=== PATIENT | female | born 1945 | race Caucasian/White ===

== ENCOUNTER 2016-07-04 17:04 | Inpatient (IN) | payer OTHER ==
[2016-07-04] MEDS ORDERED: AMIDATE ONE (17:06)
[2016-07-04] MEDS ORDERED: CALCIUM GLUCONATE 2 GM in NS 100 ML IV ONE (17:09)
[2016-07-04] MEDS ORDERED: HUMULIN R ONE (17:17)
[2016-07-04 17:38] LABS: MANUAL DIFF NEEDED? NO
[2016-07-04 17:42] LABS: BASO% 0.1 % (0.0-0.8); EOS# 0.18 X1000 (0.0-0.7); EOS% 1.3 % (0.0-10.0); HEMATOCRIT 31.4 % (37.0-47.0); IMM GRAN# 0.04 X1000 (0.0-0.04); IMM GRAN% 0.3 % (0.0-0.5); LYMPH# 1.08 X1000 (1.2-3.4); MCH 32.8 PG (27-31); MCHC 31.8 g/dL (33-37); MONO# 0.83 X1000 (0.11-0.59); MONO% 6.1 % (1.7-9.3); MPV 12.4 FL (7.4-10.4); NEUT% 84.2 % (42.2-75.2); PLT 122 X1000 (130-400); RBC 3.05 XMIL (4.2-5.4)
[2016-07-04 17:52] LABS: INR 1.01; PROTIME 10.7 Seconds (9.2-11.7); PTT 25.1 Seconds (22.0-36.0)
--- NOTE | 2016-07-04 18:00 | PROVIDER DOCUMENTATION ---
HPI-General Adult - General Chief Complaint: Near Syncope Stated Complaint: VTach runs,Has dialysis tubing in place Time Seen by Provider: 07/04/16 17:44 Allergies/Adverse Reactions: Patient Allergies Allergy/AdvReac Type Severity Reaction Status Date / Time sulfamethoxazole Allergy Severe shut Verified 07/04/16 17:54 [From Bactrim] kidneys down trimethoprim [From Bactrim] Allergy Severe shut Verified 07/04/16 17:54 kidneys down codeine Allergy hyper Verified 07/04/16 17:54 Home Medications: Home Medication List Medication Instructions Recorded Confirmed Last Taken Type Amlodipine Besylate 10 mg PO DAILY 12/30/12 07/04/16 07/04/16 08:00 History Gabapentin [Neurontin] 300 mg PO TID 12/30/12 07/04/16 07/04/16 08:00 History Insulin Aspart [Novolog] 15 unit SQ TID 12/30/12 07/04/16 07/04/16 08:00 History Levothyroxine [Synthroid] 75 microgm PO DAILY 12/30/12 07/04/16 07/04/16 08:00 History Losartan Potassium 100 mg PO DAILY 03/15/15 07/04/16 07/04/16 08:00 History Melatonin 5 mg PO QHS PRN 03/18/16 07/04/16 2 Months Ago History Hydralazine [Apresoline] 25 mg PO TID #90 tablet 03/21/16 07/04/16 07/04/16 08: 00 Rx Calcium Acetate 667 mg PO TID 07/04/16 07/04/16 07/04/16 08:00 History - History of Present Illness -Gen Adult Nature of Presenting Problems: A 71 y/o F who was sent from HD with multitute of complains prior to HD felt dizzy nausea elevated HR with SOB, on monitor was tachycardia and questionable VT on monitor at presentation was SOB, did not get dialysis today, On monitor showed tachycardia with partial block not consistant with VT, as pt is ESRD and missed dialysis also showed prominant T waves treated for hyperkalemia with the medications mentioned in nursing protocol, potassium was checked Istat which seems to be not consistant and labs reported a higher number of 5.5, pt converted back to NSR in the process clinically improved and was stable Review of Systems - Adult - REVIEW OF SYSTEMS - ADULT Constitutional: reports: no symptoms reported Eyes: reports: no symptoms reported Ears, Nose, Mouth & Throat: reports: no symptoms reported Cardiovascular: reports: see HPI Respiratory: reports: no symptoms reported Gastrointestinal: reports: no symptoms reported Genitourinary: reports: no symptoms reported Musculoskeletal: reports: no symptoms reported Integumentary: reports: no symptoms reported Neurological: reports: no symptoms reported Psychiatric: reports: no symptoms reported Endocrine: reports: no symptoms reported Hematologic/Lymphatic: reports: no symptoms reported Allergic/Immunologic: reports: no symptoms reported All Other Systems: Reviewed and Negative Past History - Adult - PAST MEDICAL HISTORY-ADULT Review of Records: reports: Old Records Reviewed, Nursing Assessment Review, Medications Reviewed, Social history reviewed & non-contributory. Major Childhood Illnesses: reports: denies history Cardiovascular: reports: CHF, HTN Respiratory: reports: denies history Gastrointestinal: reports: denies history Obstetrical/Gynecological: reports: denies history Genitourinary: reports: dialysis (renal failure, dialysis 3 x weekly for one year), ESRD Musculoskeletal: reports: denies history Neurological: reports: denies history Endocrine/Immune: reports: Diabetes, thyroid disorder Other Conditions: reports: denies history - PRIOR SURGERIES/PROCEDURES Surgical/Procedure History: reports: cholecystectomy, hysterectomy, other (left BKA) - IMMUNIZATION STATUS Childhood Immunizations: UTD Flu Vaccine: UTD - FAMILY HISTORY Family History: reviewed, not pertinent Physical Exam-General - PHYSICAL EXAM-ADULT Initial Vital Signs Reviewed: Yes - CONSTITUTIONAL General Appearance: appears well, alert, mild distress - EYES Eyes: PERRL/EOMI, pink conjunctivae, fundi clear, no AV nicking - HEAD, EARS, NOSE, MOUTH & THROAT HENMT: normocephalic/atraumatic, moist mucous membranes - NECK Neck: non-tender, full range of motion - RESPIRATORY Respiratory: chest non-tender, lungs clear, normal breath sounds, no pleuratic chest pain, no respiratory distress, no accessory muscle use - CARDIOVASCULAR Cardiovascular: normal peripheral pulses, no edema, no gallop, no JVD, tachycardia - GASTROINTESTINAL (ABDOMEN) Abdominal Exam: normal bowel sounds, non tender, soft, no organomegaly, no pulsatile mass - MUSCULOSKELETAL Extremity: normal range of motion Progress - PLAN OF CARE/RESULTS Progress/Plan/Lab Results: Laboratory Tests 07/04/16 07/04/16 07/04/16 17:10 17:10 17:10 WBC RBC Hgb Hct MCV MCH MCHC RDW Std Deviation Plt Count MPV Immature Gran % (Auto) Neut % (Auto) Lymph % (Auto) [place] % (Auto) Eos % (Auto) Baso % (Auto) Immature Gran # (Auto) Neut # (Auto) Lymph # (Auto) [place] # (Auto) Eos # (Auto) Baso # (Auto) PT INR PTT (Actin FS) D-Dimer 0.48 Sodium 132 L Potassium 5.5 H Chloride 89 L Carbon Dioxide 24 L Anion Gap 19 BUN 66 H Creatinine 7.6 H Estimated GFR/1.73 m2 5 BUN/Creatinine Ratio 9 Glucose 197 H Calculated Osmolality 289 Calcium 8.4 L Magnesium 2.1 Total Bilirubin 0.36 AST 16 ALT 24 Alkaline Phosphatase 79 Creatine Kinase 114 Troponin T 0.049 Phx-G-Zwldryhikjl Pept Total Protein 6.6 Albumin 3.6 Globulin 3.0 Albumin/Globulin Ratio 1.2 07/04/16 07/04/16 07/04/16 17:10 17:10 17:10 WBC 13.58 H RBC 3.05 L Hgb 10.0 L Hct 31.4 L MCV 103.0 H MCH 32.8 H MCHC 31.8 L RDW Std Deviation 15.4 H Plt Count 122 L MPV 12.4 H Immature Gran % (Auto) 0.3 Neut % (Auto) 84.2 H Lymph % (Auto) 8.0 L [place] % (Auto) 6.1 Eos % (Auto) 1.3 Baso % (Auto) 0.1 Immature Gran # (Auto) 0.04 Neut # (Auto) 11.43 H Lymph # (Auto) 1.08 L [place] # (Auto) 0.83 H Eos # (Auto) 0.18 Baso # (Auto) 0.02 PT 10.7 INR 1.01 PTT (Actin FS) 25.1 D-Dimer Sodium Potassium Chloride Carbon Dioxide Anion Gap BUN Creatinine Estimated GFR/1.73 m2 BUN/Creatinine Ratio Glucose Calculated Osmolality Calcium Magnesium Total Bilirubin AST ALT Alkaline Phosphatase Creatine Kinase Troponin T Pej-A-Gzmczaydwwe Pept 78918 H Total Protein Albumin Globulin Albumin/Globulin Ratio Orders Category Date Time Status CHEST-PORTABLE [RAD] Stat Exams 07/04/16 17:22 Taken BMP [BASIC METABOLIC PANEL] [CHEM] Stat Lab 02/20/17 18:25 Received CBC WITH ELECTRONIC DIFF [HEME] Stat Lab 07/04/16 17:10 Completed CK PROFILE [SP CHEM] Stat Lab 07/04/16 17:10 Completed COMPREHENSIVE METABOLIC PANEL [CHEM] Stat Lab 07/04/16 17:10 Completed D-DIMER [CHEM] Stat Lab 07/04/16 17:10 Completed MAGNESIUM [CHEM] Stat Lab 07/04/16 17:10 Completed PRO B-NATRIURETIC PEPTIDE Stat Lab 07/04/16 17:10 Completed PROTIME WITH INR [COAG] Stat Lab 07/04/16 17:10 Completed PTT [COAG] Stat Lab 07/04/16 17:10 Completed TROPONIN T Stat Lab 07/04/16 17:10 Completed Calcium Chloride Syringe Med 07/04/16 18:12 Discontinued 1 gm IV NOW ONE Calcium Gluconate 2 gm Med 07/04/16 17:09 Discontinued 0.9% Sodium Chloride Inj [Ns] 100 ml IV NOW Dextrose 50% Syringe [D50w Syringe] Med 07/04/16 18:12 Discontinued 50 ml IV NOW ONE Etomidate [Amidate] Med 07/04/16 17:06 Discontinued 40 mg .ROUTE .STK-MED ONE Insulin Human Regular [Humulin R] Med 07/04/16 18:12 Discontinued 10 unit IV NOW ONE Insulin Human Regular [Humulin R] Med 07/04/16 17:17 Discontinued 15 unit .ROUTE .STK-MED ONE EKG [EKG] Stat Ther 07/04/16 17:22 Ordered Vital Signs Temp Pulse Resp BP Pulse Ox 07/04/16 17:45 88 19 119/68 100 07/04/16 17:21 94 H 18 91/46 100 07/04/16 17:06 158 H 15 74/46 89 L 07/04/16 17:04 97.7 F 148 H 18 74/46 90 L sulfamethoxazole [From Bactrim] Allergy (Severe, Verified 07/04/16 17:54) shut kidneys down trimethoprim [From Bactrim] Allergy (Severe, Verified 07/04/16 17:54) shut kidneys down codeine Allergy (Verified 07/04/16 17:54) hyper Amlodipine Besylate 10 mg PO DAILY 12/30/12 Gabapentin [Neurontin] 300 mg PO TID 12/30/12 Insulin Aspart [Novolog] 15 unit SQ TID 12/30/12 Levothyroxine [Synthroid] 75 microgm PO DAILY 12/30/12 Losartan Potassium 100 mg PO DAILY 03/15/15 Melatonin 5 mg PO QHS PRN 03/18/16 Hydralazine [Apresoline] 25 mg PO TID #90 tablet 03/21/16 Calcium Acetate 667 mg PO TID 07/04/16 Laboratory 07/04/16 07/04/16 07/04/16 17:10 17:10 17:10 WBC 13.58 H RBC 3.05 L Hgb 10.0 L Hct 31.4 L MCV 103.0 H MCH 32.8 H MCHC 31.8 L RDW Std Deviation 15.4 H Plt Count 122 L MPV 12.4 H Immature Gran % (Auto) 0.3 Neut % (Auto) 84.2 H Lymph % (Auto) 8.0 L [place] % (Auto) 6.1 Eos % (Auto) 1.3 Baso % (Auto) 0.1 Immature Gran # (Auto) 0.04 Neut # (Auto) 11.43 H Lymph # (Auto) 1.08 L [place] # (Auto) 0.83 H Eos # (Auto) 0.18 Baso # (Auto) 0.02 PT 10.7 INR 1.01 PTT (Actin FS) 25.1 D-Dimer Sodium Potassium Chloride Carbon Dioxide Anion Gap BUN Creatinine Estimated GFR/1.73 m2 BUN/Creatinine Ratio Glucose Calculated Osmolality Calcium Magnesium Total Bilirubin AST ALT Alkaline Phosphatase Creatine Kinase Troponin T Umx-N-Dgqiwfqxhqn Pept 36522 H Total Protein Albumin Globulin Albumin/Globulin Ratio 07/04/16 07/04/16 07/04/16 17:10 17:10 17:10 WBC RBC Hgb Hct MCV MCH MCHC RDW Std Deviation Plt Count MPV Immature Gran % (Auto) Neut % (Auto) Lymph % (Auto) [place] % (Auto) Eos % (Auto) Baso % (Auto) Immature Gran # (Auto) Neut # (Auto) Lymph # (Auto) [place] # (Auto) Eos # (Auto) Baso # (Auto) PT INR PTT (Actin FS) D-Dimer 0.48 Sodium 132 L Potassium 5.5 H Chloride 89 L Carbon Dioxide 24 L Anion Gap 19 BUN 66 H Creatinine 7.6 H Estimated GFR/1.73 m2 5 BUN/Creatinine Ratio 9 Glucose 197 H Calculated Osmolality 289 Calcium 8.4 L Magnesium 2.1 Total Bilirubin 0.36 AST 16 ALT 24 Alkaline Phosphatase 79 Creatine Kinase 114 Troponin T 0.049 Ymh-U-Ertadyaogtt Pept Total Protein 6.6 Albumin 3.6 Globulin 3.0 Albumin/Globulin Ratio 1.2 - EKG 1 Time of EKG reading by physician:: 16:48 Comments: tachycardia possible partial bundle block 2 Time of EKG reading by physician:: 18:49 EKG Interpretation (*Must complete 3 of following elements*): Normal Prior EKG Comparison: unchanged from prior Comments: NSR - XRAY 1 XRAY Study: Chest Impression: See EMR Report - CONSULTS/PCP/HOSPITALIST Notification #1 *Consult/PCP/Hospitalist*: hospitalist Time Discussed: 18:53 Consult Disposition: Admit Departure - Departure Time of Disposition Order: 18:50 DIAGNOSIS: Pre-syncope, Tachycardia with heart rate 121-140 beats per minute, ESRD (end stage renal disease) on dialysis, Hyperkalemia Disposition: ADMITTED INPATIENT 09 Certified Medical Emergency: Emergent Condition: Fair - Critical Care Note Comments: pt was initially treated for presumed hyperkalemia due to ESRD and presentation , labs values seem inconsistant with presentation, discussed with hospitalist and will admit for further evalaution and cardiology workup
[2016-07-04 18:02] LABS: ALBUMIN 3.6 g/dL (3.5-5.0); CALCIUM 8.4 mg/dL (8.8-10.2); MAGNESIUM 2.1 mg/dL (1.5-2.7); POTASSIUM 5.5 mmol/L (3.5-5.1); TOTAL BILIRUBIN 0.36 mg/dL (0.20-1.00); TOTAL PROTEIN 6.6 g/dL (6.3-8.3)
[2016-07-04] MEDS ORDERED: HUMULIN R IV ONE (18:12)
[2016-07-04] MEDS ORDERED: D50W SYRINGE IV ONE (18:12)
[2016-07-04] MEDS ORDERED: CALCIUM CHLORIDE SYRINGE IV ONE (18:12)
[2016-07-04 19:12] LABS: RETIC% 1.88 % (0.8-2.1); RETIC-HE 37.1 PG (28.2-36.6)
[2016-07-04 19:18] LABS: CALCIUM 9.3 mg/dL (8.8-10.2); POTASSIUM 4.7 mmol/L (3.5-5.1)
[2016-07-04 19:25] LABS: IRON SATURATION 30 %; TIBC 181 ug/dL; TOTAL IRON 55 ug/dL (49-151); UNBOUND IRON 126 ug/dL (112-346)
[2016-07-04 19:37] LABS: FREE T4 1.12 ng/dL (0.93-1.70)
[2016-07-04] MEDS ORDERED: MELATONIN PO PRN (21:19)
[2016-07-04] MEDS ORDERED: NS 250 ML IV ONE (22:57)
[2016-07-04] MEDS ORDERED: CORDARONE 360 MG/D5W 200 ML IV ONE (23:05)
[2016-07-04] MEDS ORDERED: CORDARONE 150 MG/D5W 100 ML IV ONE (23:05)
[2016-07-04] MEDS ORDERED: CORDARONE ONE (23:10)
[2016-07-04] MEDS ORDERED: LANOXIN IV ONE (23:13)
[2016-07-04] MEDS ORDERED: CORDARONE IV ONE (23:30)
[2016-07-05] MEDS: NEO-SYNEPHRINE 50 MG in NS 250 ML IV SCH ×2 (00:20→04:21)
[2016-07-05] MEDS: HEPARIN SUBQ SCH ×3 (01:05→21:49)
[2016-07-05] MEDS: HUMALOG SUBQ SCH ×8 (01:30→21:57)
[2016-07-05] MEDS ORDERED: CALCIUM CHLORIDE SYRINGE ONE (03:19)
[2016-07-05] MEDS ORDERED: D50W SYRINGE ONE (03:19)
[2016-07-05] MEDS ORDERED: SODIUM BICARBONATE 8.4% ONE (03:19)
[2016-07-05] MEDS ORDERED: CORDARONE 540 MG in D5W 289.2 ML IV ONE (05:00)
[2016-07-05 05:40] LABS: HEMOGLOBIN 9.9 g/dL (12.0-16.0); MCH 33.2 PG (27-31); MCHC 31.9 g/dL (33-37); MPV 11.9 FL (7.4-10.4); RBC 2.98 XMIL (4.2-5.4)
[2016-07-05 05:50] LABS: AGAP 22; ALBUMIN 3.5 g/dL (3.5-5.0); BUN 75 mg/dL (8-22); CALCIUM 8.7 mg/dL (8.8-10.2); CHLORIDE 91 mmol/L (98-107); COSMO 294; HDL 38 mg/dL (45-65); LDL 18 mg/dL; POTASSIUM 5.5 mmol/L (3.5-5.1); SODIUM 134 mmol/L (136-145); TCO2 21 mmol/L (25-35); TRIGLYCERIDES 50 mg/dL (35-135); VLDL 10 mg/dL
[2016-07-05] MEDS ORDERED: HEPARIN IV PRN (06:45)
[2016-07-05] MEDS ORDERED: TIGHT: 0.2 ML/HR MISC PRN (06:45)
[2016-07-05] MEDS ORDERED: NS 2,000 ML MISC PRN (06:45)
--- NOTE | 2016-07-05 07:30 | EKG Report ---
Test Performed on : 07/05/2016 06:06:27 AM Test Reason : tachy Blood Pressure : / mmHG Vent. Rate : 093 BPM Atrial Rate : 038 BPM P-R Int : 000 ms QRS Dur : 132 ms QT Int : 408 ms P-R-T Axes : 000 -40 119 degrees QTc Int : 507 ms Atrial fibrillation. Left axis deviation Nonspecific intraventricular block Inferior infarct , age undetermined T wave abnormality, consider lateral ischemia Abnormal ECG When compared with ECG of 04-JUL-2016 17:47, (Unconfirmed) Atrial fibrillation. has replaced Sinus rhythm. Questionable change in QRS duration Borderline criteria for Anterior infarct are no longer present Inferior infarct is now present Confirmed by Campos Hatfield MD ([id number]) on 07/06/2016 9:17:30 PM
[2016-07-05] MEDS ORDERED: HEPARIN ONE (08:23)
[2016-07-05] MEDS ORDERED: NS 2,000 ML ONE (08:23)
--- NOTE | 2016-07-05 08:41 | Diag Imaging Result Document ---
PROCEDURE NAME: CHEST-PORTABLE - 07/04/2016 SINGLE FRONTAL RADIOGRAPH OF THE CHEST: COMPARISON: 04/11/2016. FINDINGS: Central vascular markings are increased suggesting pulmonary venous congestion. No definite airspace consolidation is identified. There is no definite pleural fluid collection. There is cardiomegaly. IMPRESSION: Cardiomegaly and suggestion of pulmonary venous congestion.
[2016-07-05] MEDS ORDERED: NORVASC PO SCH (09:00)
[2016-07-05] MEDS ORDERED: COZAAR PO SCH (09:00)
[2016-07-05] MEDS ORDERED: APRESOLINE PO SCH (09:00)
[2016-07-05] MEDS ORDERED: LANOXIN IV SCH (09:00)
--- NOTE | 2016-07-05 09:39 | HISTORY AND PHYSICAL ---
HISTORY OF PRESENT ILLNESS: This is a 71-year-old. She gets dialysis for end-stage renal disease on Mondays, Wednesdays, and Fridays. This is Monday. She went for dialysis. They actually put the needles and started dialysis. She got nauseated and they noticed she had a tachycardia with a wide complex. It seemed to be regular. PAST MEDICAL HISTORY: 1. Diabetes mellitus type 2. 2. Hypertension. 3. End-stage renal disease, on hemodialysis 3 times a week, Mondays, Wednesdays, and Fridays. Followed by Dr. Reed. 4. Peripheral neuropathy. 5. Hypothyroidism. 6. Anemia. 7. Recent history of problems with ventricular ectopy, trigeminy, bradycardia on the last admission. PAST SURGICAL HISTORY: 1. AV graft replacement in left arm for hemodialysis. 2. Left ekdun-lmn-sbch amputation for peripheral vascular disease. 3. Hysterectomy. 4. Cholecystectomy. 5. Recent left heart catheterization at [facility]. SOCIAL HISTORY: Patient denies past or present alcohol, tobacco, or illicit drugs. FAMILY HISTORY: Patient's mother had history of stroke, congestive heart failure. Patient's father has a history of heart disease, two heart attacks, and secondary to myocardial infarction. She has some sisters with a history of breast cancer, a brother with a history of esophageal cancer. ALLERGIES: Patient is allergic to sulfa, Bactrim, codeine. Reports that she has skin inflammation noted from the use of latex and Band-Aids. MEDICATIONS: Current list of medications is forthcoming. It looks like she is on amiodarone, calcium carbonate, Neurontin, NovoLog, labetalol, Synthroid, losartan, melatonin. HOSPITALIZATIONS: Last admission, 03/19/2016. I think at that time, it was for a syncopal episode. She has symptomatic bradycardia. She has seen Dr. Feldman before. Echocardiogram done on 03/19/2016, left ventricle normal size without hypertrophy. Ejection fraction 60-65%. Left and right atrium mildly dilated. No pericardial effusion. No valvular disease. Peak pulmonary pressures 40-45 mmHg. Last admission in March, she was found to have junctional bradycardia which was symptomatic secondary to high dose beta [place] therapy which improved with stopping the beta blockers. She had ectopic ventricular contractions. On presentation today, EKG, they read marked sinus bradycardia but she has a wide complex rhythm with right bundle branch pattern, a rate of 150, regular. PHYSICAL EXAMINATION: GENERAL: Well developed, well nourished, awake, alert, pleasant. VITAL SIGNS: Temperature 97.7 degrees, pulse 88, respirations 24, and blood pressure 131/50. HEENT: Her pupils are equal. CVP appears less than 6 cm. No distended neck veins. LUNGS: Clear anterolateral. CARDIOVASCULAR: Examination appears to be in sinus rhythm but regular rhythm and rate. Carotid and radial, femoral pulses 2+ and symmetrical. ABDOMEN: Soft. No hepatojugular reflux. EXTREMITIES: No clubbing, cyanosis, or edema. She has a left ornee-voj-rfrd amputation. LABORATORY DATA: White count 13,580, hematocrit was 31, platelet count 122,000. Sodium 132, potassium 5.5, chloride 89, bicarb 24, BUN 66, creatinine 7.6, magnesium 2.1, calcium 8.4. Liver functions unremarkable. ProBNP 23,307. Prothrombin time 10.7, PTT 25. ASSESSMENT AND PLAN: 1. Palpitations, tachycardia, wide complex with a right bundle-branch. It does not appear to be ventricular tachycardia. She has had a history of sinus bradycardia. She has had this trouble before. They had entertained the idea of maybe needing a pacemaker. We will put her on a monitor and follow her. Plan I think dialysis in the morning per Dr. Reed. Note, electrolytes look reasonable. Her potassium is 5.5, magnesium 2.1. I do not see impressive acidosis. 2. End-stage renal disease. Volume level looks pretty good. Electrolytes look good. Acid base looks pretty good as well. Dialysis in the morning. She usually gets it Mondays, Wednesdays, and Fridays. 3. Diabetes mellitus type 2. Blood sugars will pattern and put her on a sliding scale. 4. She has had a recent echocardiogram. Good left ventricular function. Upon evaluation last time, her heart rate was 32 to 35 per minute. I think they stopped her beta blockers and this seemed to help. Electrocardiogram showed a junctional bradycardia with a rate of 35. She showed improvement. I do not see evidence of cardiac ischemia. She appears to be pretty hemodynamically stable with this rhythm. She presented with a rate of 150, got into the 160s, stated irregular, right bundle branch pattern, and then went back to normal sinus rhythm with a narrow complex. She has poor R-wave progression in the anterior leads but I think that is old. She has no definitive ST-segment elevation or depression.
--- NOTE | 2016-07-05 10:35 | CONSULTATION ---
DATE OF CONSULTATION: 07/05/2016 INDICATION: Arrhythmia. HISTORY OF PRESENT ILLNESS: Ms. Calhoun is a 71-year-old, white female with a history of ventricular tachycardia, coronary artery disease, and end-stage renal disease. She presented yesterday from dialysis with apparent complaints of arrhythmia that was witnessed. She was also sent over for syncope. However, per the patient, she had no episodes of syncope. She had some trouble with headache as well as some lightheadedness but again no syncope. She denies any chest pain. She has had issues with shortness of breath for the last several months that does not seem to have worsened recently. She has no orthopnea. She does sleep with oxygen at night at times. She reports that sometimes she will fall asleep without it and that does not seem to affect her breathing overnight. Again, she has had no chest pain and no exertional chest pain. However, her exertional ability is limited secondary to her comorbid conditions as well as her left-sided BKA. She did have an admission in January at which time she had a ventricular tachycardia, was sent over to [facility] where she had a cardiac catheterization. I believe she was started on amiodarone at that time. She then was discharged and in followups had episodes of bradycardia resulting in rehospitalization in March of 2016. At that time, she was discontinued off of labetalol. Somewhere during the course of the interim time, she has been decreased on her amiodarone I believe to 200 mg a day. Presently, during my examination, she is having frequent runs of what appear to be a ventricular tachycardia with rates up into the 140s which she is tolerating asymptomatically. Currently, she is on dialysis and seems to be tolerating dialysis without any real symptoms. PAST MEDICAL HISTORY: 1. She has a history of coronary artery disease. Last cardiac catheterization was performed in January of 2016. At that time, she had a mid LAD lesion of around 60%. Circumflex vessel had a 2nd OM that had an ostial of 80-90 in a small to moderate size vessel. The 1st marginal also appeared to have moderate irregularities. Right coronary artery had a tubular 60% stenosis with distal irregularities. PDA had 40-50% disease. LVEDP on that study was 25. 2. Ventricular tachycardia with episodic bradycardia as well, making it difficult to treat on beta-blockers or amiodarone. 3. Hypertension. 4. Ventricular tachycardia. 5. Diabetes mellitus. 6. Hyperlipidemia. 7. Peripheral vascular disease with the history of left BKA. 8. End-stage renal disease. FAMILY HISTORY: Significant for hypertension. SOCIAL HISTORY: She does not currently smoke. REVIEW OF SYSTEMS: A 10 system review of systems is negative except for those mentioned in the HPI. PHYSICAL EXAMINATION: Vital Signs: Her heart rate in the sinus beats is running in the 80s to 90s. Her ventricular tachycardia episode seemed to be running up to around 140. Her blood pressure is 114/64. General: She is in no acute distress. HEENT: Oropharynx is moist. She has poor dentition. Eye examination shows pink conjunctivae and white sclerae. Neck: Examination shows no obvious thyromegaly or thyroid tenderness. Cardiovascular: She is in a regular but very tachycardic rate. She has no obvious murmurs. She has no carotid bruits. She has no lower extremity edema noted in her right lower extremity or down to the stump of her left lower extremity. They are warm and well perfused. Chest: Examination sounds clear with limited inspiratory effort. She has no increased work of breathing. Abdomen: Soft, nontender, nondistended. She has no obvious organomegaly. Skin Examination: Warm and dry throughout without any rashes. Neurological: She seems to be moving all extremities well. Cranial nerves 2- 12 are intact. Psychiatric: Alert, oriented, pleasant. She has a normal mood and affect. PERTINENT DATA: Her chest x-ray shows cardiomegaly with a suggestion of pulmonary vascular congestion. Her telemetry seems to show episodes of ventricular tachycardia and her EKGs would seem to coincide with that. Her initial EKG on the at 171 seems to show a wide complex tachycardia with a left bundle branch block. This is concerning for ventricular tachycardia at a rate of 149. Subsequent EKG at 174 shows conversion to sinus rhythm at a rate of 90 beats per minute. No ischemic changes. She does have poor R-waves in the anteroseptal regions but no clear evidence of definite Q-waves. Her final EKG at 6:06 this morning shows what appears to be a slow ventricular tachycardia. She has clear P-waves identified that do not seem to match up with the QRS complexes. She has a left bundle morphology consistent with her previous EKGs showing the wide complex tachycardia. I believe this is most likely evident for a slow ventricular tachycardia. Her laboratory data shows a white count of 18.5, her hematocrit is 31, her platelet count is 169,000. Her sodium is 134, potassium is 5.5, her BUN is 75, with a creatinine of 8.7. Her cardiac enzymes thus far are negative. Initial was 0.049. Last check was 0.053. Between those checks, there were 10 hours. Her initial proBNP was 23,307. Her LDL was 18, her HDL was 38, her total cholesterol was 66, with a triglyceride of 50. TSH is 5.49 with a free T4 of 1.12. ASSESSMENT: 1. Ventricular tachycardia in a patient currently hemodynamically stable. 2. Episodic bradycardia. 3. Significant coronary artery disease. 4. End-stage renal disease. PLAN: I believe the patient is appropriate for transfer to [facility]. I will continue the amiodarone infusion right now but I believe that ultimately she will need a cardiac catheterization to delineate her coronary anatomy. She certainly could warrant a flow wire down the left anterior descending and possible intervention to that obtuse marginal. She will also likely need consideration for some sort of a device implant, whether that is a permanent pacemaker versus ICD, considering her episodes of bradycardia that have occurred on any sort of beta [place] or amiodarone treatment, as well as her issues with ventricular tachycardia. I have placed a call into the EP service at [facility]. I am a waiting a return call. Again, currently, she is very stable. She is alert and oriented. Her blood pressure is being maintained. She is warm and well perfused, and has no physical complaints presently.
--- NOTE | 2016-07-05 15:26 | EKG Report ---
Test Performed on : 07/05/2016 1:25:33 PM Test Reason : rhythm change Blood Pressure : / mmHG Vent. Rate : 125 BPM Atrial Rate : 071 BPM P-R Int : 198 ms QRS Dur : 096 ms QT Int : 396 ms P-R-T Axes : 058 -34 -01 degrees QTc Int : 571 ms Atrial fibrillation. Left axis deviation Nonspecific intraventricular block Possible Anterior infarct , age undetermined T wave abnormality, consider lateral ischemia Abnormal ECG When compared with ECG of 05-JUL-2016 13:25, (Unconfirmed) No significant change was found Confirmed by Campos Hatfield MD ([id number]) on 07/06/2016 9:40:54 PM
[2016-07-05] MEDS: PRILOSEC PO SCH (15:40)
[2016-07-05] MEDS: SYNTHROID PO SCH (15:41)
[2016-07-05] MEDS: NEURONTIN PO SCH ×3 (15:42→16:53)
[2016-07-05] MEDS: PHOSLO PO SCH ×3 (15:43→16:53)
[2016-07-05 15:58] LABS: CK INDEX 1.4 (0.0-2.5); CK-MB 4.05 ng/mL (0.0-5.0)
--- NOTE | 2016-07-05 16:09 | CONSULTATION ---
DATE OF CONSULTATION: 07/05/2016 REASON FOR ADMISSION: Wide complex tachycardia at dialysis yesterday evening with patient having altered mental status and near syncopal episode. REASON FOR CONSULTATION: End-stage renal disease with assistance with medical management. HISTORY OF PRESENT ILLNESS: This is a 71-year-old white female who is known to our outpatient services for hemodialysis at the [facility] on Monday, Monday, Monday. Patient subsequently had gone to dialysis yesterday. Before she had any needles in to start dialysis, patient states that she started to feel lightheaded, her head started to hurt, and she felt palpitations. Once she was hooked up to the EKG, it was noted that she was in a wide complex tachycardia. She had desaturated. The patient was subsequently transported to [facility]. It was noted that on her 12-lead EKG she appears to have had ventricular tachycardia with a heart rate in the 150-180 range. Blood pressure was low at this time. She denies any increased work of breathing. She denies any chest pain at this time. No nausea or vomiting. No diarrhea. No fever or chills recently. She does state that she did fall on Monday evening and, after falling and hitting her head, she states that she was nauseated for a while, no emesis, but that improved. She does not appear to have had any further residual from that. PAST MEDICAL HISTORY: She has end-stage renal disease with hemodialysis on Monday, Monday, Monday at the [facility]. Diabetes mellitus type 2. Hypertension. Peripheral neuropathy. Hypothyroidism. Anemia. Recent history of vascular ectopy with trigeminy, bradycardia on her last admission. She had anemia secondary to chronic disease. She also has osteodystrophy secondary to chronic disease. PREVIOUS SURGICAL HISTORY: An AV graft to the left upper arm for hemodialysis. She has a left [id number]-[id number] amputation from peripheral vascular disease. Hysterectomy. Cholecystectomy. Recent heart catheterization at [facility] on her last admission. SOCIAL HISTORY: She has family who are attentive to her care. Her son is at her bedside at this time. She denies any tobacco, alcohol, or illicit drug use. FAMILY HISTORY: Mother has history of a stroke with congestive heart failure. Patient's father had a history of heart disease, 2 heart attacks, and secondary to myocardial infarction . She has a sister with a history of breast cancer, a brother with a history of esophageal cancer. CURRENT ALLERGIES: Sulfa, Bactrim, codeine. She has inflammation noted when she has latex or Band-Aids used. HOME MEDICATIONS: Amiodarone, calcium carbonate, Neurontin, NovoLog, labetalol , Synthroid, Losartan, and melatonin. She also receives Protonix, Ferrlecit, Rocaltrol, and IV iron as indicated at the outpatient clinic with Sarah. REVIEW OF SYSTEMS: Review of systems x10 with pertinent positives listed above in the HPI. MOST RECENT VITAL SIGNS: Last temperature 98.2, blood pressure 131/76, heart rate 95, respirations 30. She is currently on 3 to 3.5L of nasal cannula. Last recorded saturation is at 95%. She has had 192 in. She has had zero out, with need for dialysis assistance. LABS: This a.m., sodium is 134, potassium 5.5, chloride 91, CO2 is 21, BUN 75, creatinine 8.7, glucose 159. Her anion gap is 22. Calcium 8.7, phosphorus 7.2, albumin 3.5. She has a TSH on admission of 5.49 with a free T4 of 1.12, a folate greater than 40, B12 of 673. She has an iron of 55, total iron binding capacity 181, total percent saturation of 30 with a ferritin of 1471. Her white count is 18.5, hemoglobin 9.9, hematocrit 31, with a platelet count of 169,000. PHYSICAL EXAMINATION: This is a 71-year-old white female. She appears in no acute distress. Skin is warm and dry. HEENT: Normocephalic, atraumatic. Conjunctivae pale. She has HONEY. Mucous membranes are moist. Neck: Supple. Trachea midline. No JVD. Cardiovascular: She has regular rate and rhythm on the monitor at this time. She has no ectopy that is noted. No appreciable murmur or gallop. Lungs: Clear to auscultation anteriorly. She remains on O2. Equal excursion. Abdomen: Soft, nontender. Positive bowel sounds. Extremities: No edema. No clubbing or cyanosis. She does have a left [id number] amputation. Genitourinary: Not inspected. Dialysis assist. Integumentary: She has no rashes or lesions noted. She has a slight hematoma, she states, over the back of her occiput, left. Neurological: She is alert and oriented x3, able to assist with the exam. ASSESSMENT AND PLAN: 1. End-stage renal disease. Patient is due for her dialysis today secondary to missing her treatment yesterday due to her arrhythmia. We will plan to dialyze her slowly, minimal pull. She currently has amiodarone and Levophed infusing. We will request assistance from ICU to get her into dialysis. 2. Electrolytes. Patient has mild hyperkalemia at 5.5. We will plan to dialyze this patient today on a 2K bath. 3. Acid base balance. This is stable. 4. Palpitations with tachycardia. She appears to have ventricular tachycardia. We will request Cardiology to see if this has not been consulted at this time. 5. Anemia. This remains low, but stable. I would like to thank you for allowing us to follow with this patient. Seen, data reviewed, discussed with Lavelle Davison on 07/05/16. I agree with the above assessment and plan of care. rg Dictated by KRYS Barbosa for Pineda Reed MD [facility]
--- NOTE | 2016-07-05 17:51 | PROGRESS NOTE ---
DATE: 07/05/2016 SUBJECTIVE: Today Ms. Calhoun referred to be doing a little better. She says she feels tired. At home she was having some remarkable shortness of breath especially on exertion. OBJECTIVE: Vital signs: This morning her is blood pressure is 114/64, pulse of 89, respiration is 24, temperature is 98.2 degrees. General: Ms. Calhoun is a 71-year-old female. She was in bed. Not seemingly distressed. HEENT: Mucosa is pink and moist. Anicteric. Acyanotic. Neck: Supple. Chest: Air entry is bilaterally reduced. A few posterior crepitations bilaterally. No rhonchi. Cardiovascular: Irregularly irregular heart rate, tachycardic, but no murmurs, no rubs. Abdomen: Distended, nontender. There is a mild periumbilical hernia. Extremities: Right side has no abnormalities. The left side has a BKA. X-RAY: A chest x-ray done yesterday did show cardiomegaly and suggestion of pulmonary venous congestion. ASSESSMENT: 1. Tachycardia with wide complex and right bundle branch. I think this is probably atrial fibrillation with a block. Patient has been evaluated by Cardiology. She is currently on amiodarone drip. We will continue with that. Patient has a history of coronary artery disease, so this is probably a manifestation of the underlying disease. My understanding is that there is a plan to let her go to [place]. 2. End-stage renal disease on hemodialysis. Patient got dialysis today. 3. Diabetes mellitus. Stable. 4. History of left below-knee amputation noted.
[2016-07-06] MEDS ORDERED: CORDARONE 360 MG/D5W 200 ML IV SCH (00:30)
[2016-07-06] MEDS: PRILOSEC PO SCH (07:09)
[2016-07-06] MEDS: HUMALOG SUBQ SCH ×2 (07:13→09:09)
[2016-07-06] MEDS: SYNTHROID PO SCH (07:15)
[2016-07-06 08:11] VITALS: BP 153/130
[2016-07-06 08:51] LABS: HEMATOCRIT 30.1 % (37.0-47.0); HEMOGLOBIN 9.4 g/dL (12.0-16.0); MCH 33.1 PG (27-31); MCHC 31.2 g/dL (33-37); MPV 11.6 FL (7.4-10.4); RBC 2.84 XMIL (4.2-5.4)
[2016-07-06 08:59] LABS: ALBUMIN 3.2 g/dL (3.5-5.0); CALCIUM 7.7 mg/dL (8.8-10.2); POTASSIUM 5.3 mmol/L (3.5-5.1)
[2016-07-06] MEDS: PHOSLO PO SCH (09:09)
[2016-07-06] MEDS: NEURONTIN PO SCH (09:09)
--- NOTE | 2016-07-06 14:54 | PROGRESS NOTE ---
DATE: 07/06/2016 TIME SEEN: 0850. SUBJECTIVE: Ms. Calhoun is lying quietly in bed. She has no chest pain, no increased work of breathing. She is in sinus rhythm at this time. OBJECTIVE: Vital signs: Her most recent vital signs, temperature is 98.8 degrees, blood pressure 153/130, heart rate is 118, respirations 16. She is currently on 4 L nasal cannula. Last recorded saturation of 95%. She has had 356 in. She has had 900 off on dialysis yesterday. Labs: This a.m., sodium 134, potassium 5.3, chloride 92, CO2 22, BUN 49, creatinine 6.6, glucose 115, anion gap of 20, calcium 7.7, phosphorus 5.6, albumin 3.2. White count 9.37, hemoglobin 9.4, hematocrit 30.1 with a platelet count of 110,000. PHYSICAL EXAMINATION: General: This is a 71-year-old white female. She is currently resting quietly in bed. She is in no acute distress. Skin: Warm and dry. HEENT: Normocephalic, atraumatic. Conjunctivae pale. She has HONEY. Mucous membranes moist. Neck: Supple. Trachea midline. No JVD. Cardiovascular: Regular rate and rhythm. She is without murmur or gallop. Lungs: Clear to auscultation anteriorly. Equal excursion. She is on O2. Abdomen: Soft, nontender. Positive bowel sounds. Extremities: No edema. Right has no clubbing or cyanosis. Left as eaozq-irb-[id number] amputation. Genitourinary: Not inspected. Dialysis assist. Integumentary: No rashes or lesions evident. Slight hematoma to the back of the occiput on the left side of her head. Neurological: Alert and oriented x3. Able to assist with exam. ASSESSMENT AND PLAN: 1. End-stage renal disease. This is patient's routine dialysis day. The patient received dialysis yesterday secondary to missing it on Monday evening. Patient is now due to be transferred to [facility] for cardiac evaluation and workup secondary to tachyarrhythmia. 2. Electrolytes and acid-base balance. She remains with mild hyperkalemia. She is in sinus rhythm at this time on the monitor. 3. Acid-base balance. This remains stable. 4. Anemia. This is stable. 5. Palpitations. No further occurrence since Monday evening. Cardiology is following. I would like to thank you for allowing us to follow with this patient. Data reviewed, discussed with Lavelle Davison on 07/06/16. I agree with the above assessment and plan of care. rg Dictated by KRYS Barbosa for Pineda Reed MD [facility]
== END 2016-07-06 09:50 | disposition short-term general hospital (02) | DRG 308 ==
LOC: EDBD → ED 17:04 → EDIPHOLD 20:40 → ICU 07-05 11:13
PROVIDERS: ATTEND Internal Medicine
PROC: 5A1D00Z (ICD-10-PCS; principal; 2016-07-05)
DX: I47.2 Ventricular tachycardia (principal); N18.6 End stage renal disease; E11.22 Type 2 diabetes mellitus with diabetic chronic kidney disease; I12.0 Hypertensive chronic kidney disease with stage 5 chronic kidney disease or end stage renal disease; E11.42 Type 2 diabetes mellitus with diabetic polyneuropathy; E87.5 Hyperkalemia; I25.10 Atherosclerotic heart disease of native coronary artery without angina pectoris; E03.9 Hypothyroidism, unspecified; E78.5 Hyperlipidemia, unspecified; D64.9 Anemia, unspecified; I44.7 Left bundle-branch block, unspecified; K42.9 Umbilical hernia without obstruction or gangrene; Z79.899 Other long term (current) drug therapy; Z79.4 Long term (current) use of insulin; Z99.2 Dependence on renal dialysis; Z89.512 Acquired absence of left leg below knee; Z82.3 Family history of stroke; Z82.49 Family history of ischemic heart disease and other diseases of the circulatory system; Z80.3 Family history of malignant neoplasm of breast; Z80.0 Family history of malignant neoplasm of digestive organs
CPT/HCPCS: 71010; 80048; 80053; 80061; 80069; 82550; 82553; 82607; 82728; 82746; 82948; 83036; 83540; 83550; 83735; 83880; 84100; 84439; 84443; 84484; 85025; 85027; 85045; 85379; 85610; 85730; 93005; 93010; 96365; 96366; 96368; 96375; 96376; J0282; J0610; J1160; J1644; J1815; J2370; J7030; J7040; J7050; J7060; 99285-25